=== PATIENT | male | born 1960 | race Caucasian/White ===

== ENCOUNTER 2019-06-08 15:46 | Emergency (ER) | payer OTHER ==
[~2019-06-08] VITALS: Ht 172.7 cm; Wt 78.5 kg
[2019-06-08 16:01] VITALS: Ht 172.7 cm; Wt 78.5 kg
[2019-06-08 17:28] LABS: CALCIUM 9.5 mg/dL (8.5-10.1); CARBON DIOXIDE 26.7 mmol/L (21-32); CHLORIDE SERUM 101 mmol/L (98-107); CREATININE SERUM 0.6 mg/dL (0.7-1.3); GFR1 > 60 mL/min; GLUCOSE SERUM 332 mg/dL (74-106); POTASSIUM SERUM 4.4 mmol/L (3.5-5.1); SODIUM SERUM 136 mmol/L (136-145)
[2019-06-08 19:42] VITALS: BP 146/80
== END 2019-06-08 19:54 | disposition home or self-care (01) ==
LOC: ED 15:46
PROVIDERS: Emergency Medicine
DX: H53.2 Diplopia (principal); I10 Essential (primary) hypertension; E11.9 Type 2 diabetes mellitus without complications; Z88.6 Allergy status to analgesic agent
CPT/HCPCS: 82962